=== PATIENT | male | born 1955 | race African-American/Black ===

== ENCOUNTER 2016-07-19 08:30 | Day surgery (SDC) | payer MEDICARE, OTHER ==
[~2016-07-19] VITALS: Ht 180.3 cm; Wt 72.6 kg
[~2016-07-19 08:30] MED LIST: ASPIRIN ADULT L81 M2 PO; CIPRO 500MG TA500 MG PO; FLEXERIL10 MG PO; PEPCID40 MG PO; PYRIDIUM100 MG PO
--- NOTE | 2016-07-19 09:43 | Operative Note ---
Endoscopy Report Date: 07/19/16 Preoperative diagnosis: History of numerous precancerous polyps Procedure Type of procedure: Total colonoscopy with snare polypectomy and polypectomy by biopsies Indications:Patient presents back the office to follow-up for scheduling of follow-up colonoscopy. I had performed an initial screening colonoscopy on him on 02/20/2015. At that time he had numerous precancerous polyps including a tubulovillous adenoma with high-grade dysplasia. Due to the large number of polyps and high-grade dysplasia I performed follow-up colonoscopy 3 months later on 06/02/15. He actually had 6 tubular adenomas at that time and therefore underwent a repeat colonoscopy 6 months later on 12/29/15. At that time he actually had a tubulovillous adenoma in the cecum and a tubular adenoma. Plan was made for follow-up colonoscopy. He is without any significant complaints regarding gastrointestinal issues. However he does state that he has sciatica and has multiple pain patches and gabapentin prescribed for this. He denies any family history of colon cancer. Consent was obtained and patient was taken to same-day surgery endoscopy procedure room. He was positioned in a lateral decubitus position. Adequate intravenous sedation was achieved with anesthesia titration of propofol. Variable stiffness Olympus colonoscope was inserted via the anus and advanced to the cecum. Ileocecal valve and appendiceal orifice were clearly identified. Colonoscope was withdrawn through the colon with careful surveillance. He had minimal sigmoid diverticuli. In the distal sigmoid colon the rectosigmoid region there is no adenomatous-appearing polyp removed with cold snare. Retroflexion revealed nonpathologic internal hemorrhoids. Within the rectum there were a couple of diminutive hyperplastic appearing polyps removed with cold biopsy forceps. Findings 1. Polyp 2. Diverticulosis Follow-Up Follow-Up: I will have him return to the office for follow-up. Pending the pathology, and in light of his previous history, plan for repeat colonoscopy one to 2 years. at [id number]
[2016-07-19 11:36] VITALS: BP 150/87
== END 2016-07-19 10:30 | disposition home or self-care (01) ==
LOC: SDC 08:30
PROVIDERS: Surgery
PROC: 0DBP8ZX Excision of Rectum, Via Natural or Artificial Opening Endoscopic, Diagnostic (ICD-10-PCS; 2016-07-19)
PROC: 0DBN8ZX Excision of Sigmoid Colon, Via Natural or Artificial Opening Endoscopic, Diagnostic (ICD-10-PCS; principal; 2016-07-19 09:00)
DX: Z09 Encounter for follow-up examination after completed treatment for conditions other than malignant neoplasm (principal); Z86.010 Personal history of colon polyps; K57.90 Diverticulosis of intestine, part unspecified, without perforation or abscess without bleeding; D12.7 Benign neoplasm of rectosigmoid junction; K62.1 Rectal polyp